=== PATIENT | male | born 1975 | race Hispanic/Latino ===

== ENCOUNTER 2017-05-01 02:02 | Emergency (ER) | payer OTHER ==
[2017-05-01 02:24] VITALS: BP 127/72; RESP 17; TEMP 98.2; O2SAT 99
[2017-05-01 03:03] LABS: BASO % 0.3 % (0.0-2.0); EOS # 0.1 K/uL (0.0-0.7); EOS % 1.6 % (0.0-4.0); HEMOGLOBIN 14.2 g/dL (12.0-18.0); LYMPH # 1.5 K/uL (1.0-4.3); LYMPH % 21.8 % (20.0-40.0); MEAN CELL VOLUME 82.6 fl (80.0-94.0); MEAN CORPUSCULAR HEMOGLOBIN 28.6 pg (27.0-31.0); MEAN CORPUSCULAR HGB CONC 34.6 g/dL (33.0-37.0); MEAN PLATELET VOLUME 8.3 fl (7.2-11.7); MONO # 0.5 K/uL (0.0-0.8); MONO % 7.2 % (0.0-10.0); NEUT # 4.6 K/uL (1.8-7.0); NEUT % 69.1 % (50.0-75.0); NRBC % 0.1 % (0.0-0.0); RBC 4.97 Mil/uL (4.40-5.90); RED CELL DISTRIBUTION WIDTH 13.6 % (11.5-14.5); WHITE BLOOD COUNT 6.7 K/uL (4.8-10.8)
[2017-05-01 03:12] LABS: ALB/GLOB RATIO 1.7 (1.0-2.1); ALBUMIN 4.9 g/dL (3.5-5.0); ALT/SGPT 64 U/L (21-72); AST/SGOT 35 U/L (17-59); BLOOD UREA NITROGEN 17 mg/dl (9-20); CALCIUM 10.1 mg/dL (8.4-10.2); GFR AFRICAN-AMERICAN > 60; GFR NON-AFRICAN AMERICAN > 60
--- NOTE | 2017-05-01 03:48 | ED PDOC ---
HPI: General Adult Time Seen by Provider: 05/01/17 02:22 Chief Complaint (Nursing): Palpitations Chief Complaint (Provider): palpitations History Per: Patient History/Exam Limitations: no limitations Additional Complaint(s): 42yo M in ED for eval of palpitations noted today -two episodes #1 20mins in length sudden fast heart rate at 120bpm after it subsided noted left arm discomfort. Pt however has a previous arm injury and may be attributed it to that. Pt admits to increased anxiety at work and home. Pt states he dind't feel well at home. now pt states he feels well. no complaints of arm pain or palpitations. denies: nausea, vomiting dizziness vision changes back pain epigastric pain diaphones chest pain, jaw pain, neck pain. has no significant past medical hx and family hx of HTN. denies smoking or alcohol abuse, denies drug use. Past Medical History Reviewed: Historical Data, Nursing Documentation, Vital Signs Vital Signs: Last Vital Signs Temp 98.2 F 05/01/17 02:11 Pulse 72 05/01/17 02:11 Resp 17 05/01/17 02:11 BP 127/72 05/01/17 02:11 Pulse Ox 99 05/01/17 02:11 - Medical History PMH: No Chronic Diseases - Family History Family History: States: No Known Family Hx - Allergies Allergies/Adverse Reactions: Allergies Allergy/AdvReac Type Severity Reaction Status Date / Time No Known Allergies Allergy Verified 05/01/17 02:25 Review of Systems ROS Statement: Except As Marked, All Systems Reviewed And Found Negative Constitutional: Negative for: Fever, Chills, Weakness, Malaise Cardiovascular: Positive for: Palpitations. Negative for: Chest Pain, Orthopnea , Paroxysmal Noc. Dyspnea, Edema, Light Headedness Respiratory: Negative for: Cough, Shortness of Breath Physical Exam - Reviewed Nursing Documentation Reviewed: Yes Vital Signs Reviewed: Yes - Physical Exam Appears: Positive for: Well, Non-toxic, No Acute Distress Head Exam: Positive for: ATRAUMATIC, NORMAL INSPECTION, NORMOCEPHALIC Skin: Positive for: Normal Color, Warm, DRY Eye Exam: Positive for: EOMI, Normal appearance, PERRL ENT: Positive for: Normal ENT Inspection Neck: Positive for: Normal, Painless ROM Cardiovascular/Chest: Positive for: Regular Rate, Rhythm Respiratory: Positive for: CNT, Normal Breath Sounds Gastrointestinal/Abdominal: Positive for: Normal Exam, Bowel Sounds, Soft Back: Positive for: Normal Inspection Extremity: Positive for: Normal ROM Neurologic/Psych: Positive for: Alert, Oriented - Laboratory Results Result Diagrams: 05/01/17 03:00 05/01/17 03:00 - ECG ECG Rhythm: Positive for: Normal QRS, Normal ST Segment, Sinus Rhythm O2 Sat by Pulse Oximetry: 99 - Progress ED Course And Treament: palpitations 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 pt with stable VS and normal labs. Pt strongly advised to f.u with cardiology for stress test and holter monitor and to f.u with pmd for thryoid panel pt well appearing and d.c without chest pain or palpitations. Disposition - Clinical Impression Clinical Impression: Palpitations - Patient ED Disposition Is Patient to be Admitted: No Counseled Patient/Family Regarding: Studies Performed, Diagnosis, Need For Followup - Disposition Referrals: [facility] [employer] [facility] [Outside] Disposition: Routine/Home Disposition Time: 03:51 Condition: STABLE Instructions: Palpitations (ED) Forms: [employer] ([place])
[2017-05-01 04:19] VITALS: PULSE 64
--- NOTE | 2017-05-01 11:28 | CARD ---
APPROVED REPORT EKG Measurement Heart [id number] <Conclusion> Normal sinus rhythm Normal ECG
== END 2017-05-01 04:05 | disposition home or self-care (01) ==
LOC: H.ER 02:02
DX: R00.2 Palpitations (principal)

== ENCOUNTER 2019-03-30 07:33 | Emergency (ER) | payer OTHER ==
[2019-03-30 07:40] VITALS: BMI 28.7
--- NOTE | 2019-03-30 08:08 | ED PDOC ---
HPI: General Adult Time Seen by Provider: 03/30/19 07:51 Chief Complaint (Nursing): ENT Problem Chief Complaint (Provider): ENT Problem History Per: Patient History/Exam Limitations: no limitations Onset/Duration Of Symptoms: Days (x1) Current Symptoms Are (Timing): Still Present Additional Complaint(s): Patient is a 44 y/o male with no significant PMHx who presents to the ED for evaluation of throat swelling onset yesterday. [place] and was taking Alavert daily because of all the pollen. Patient reports last night he felt like he had a fever so took some Advil for relief. Patient claims he woke up this morning with throat pain as well as difficulty swallowing and speaking. Patient indicated that during the night he felt like he was choking on his own saliva. Furthermore, patient complains of cough, chills, and congestion. Patient denies fever, wheezing, vomiting, and diarrhea at this time. PCP: Dr. Brink ([place]) Past Medical History Reviewed: Historical Data, Nursing Documentation, Vital Signs Vital Signs: Last Vital Signs Temp 99.4 F 03/30/19 07:40 Pulse 88 03/30/19 07:40 Resp 17 03/30/19 07:40 BP 112/76 03/30/19 07:40 Pulse Ox 96 03/30/19 07:40 Primary Care Provider: Freida Oconnor - Medical History PMH: No Chronic Diseases - Surgical History Surgical History: Appendectomy Other surgeries: radial arm repair - Family History Family History: States: No Known Family Hx - Home Medications Home Medications: Ambulatory Orders Medication Instructions Recorded Prednisone 50 mg PO DAILY #3 tablet 03/30/19 - Allergies Allergies/Adverse Reactions: Allergies Allergy/AdvReac Type Severity Reaction Status Date / Time No Known Allergies Allergy Verified 03/30/19 07:45 Review of Systems ROS Statement: Except As Marked, All Systems Reviewed And Found Negative Constitutional: Positive for: Chills. Negative for: Fever ENT: Positive for: Nose Congestion, Throat Pain, Throat Swelling Respiratory: Positive for: Cough. Negative for: Wheezing Gastrointestinal: Negative for: Vomiting, Diarrhea Physical Exam - Reviewed Nursing Documentation Reviewed: Yes Vital Signs Reviewed: Yes - Physical Exam Appears: Positive for: No Acute Distress Head Exam: Positive for: ATRAUMATIC, NORMAL INSPECTION, NORMOCEPHALIC Skin: Positive for: Normal Color, Warm, DRY Eye Exam: Positive for: EOMI, Normal appearance, PERRL ENT: Positive for: Normal ENT Inspection, Pharyngeal Erythema. Negative for: Tonsillar Exudate, Tonsillar Swelling Neck: Positive for: Normal, Painless ROM, Supple Cardiovascular/Chest: Positive for: Regular Rate, Rhythm. Negative for: Murmur Respiratory: Positive for: Normal Breath Sounds (clear to auscultation bilaterally). Negative for: Wheezing, Respiratory Distress Pulses-Radial (L): 2+ Pulses-Radial (R): 2+ Gastrointestinal/Abdominal: Positive for: Normal Exam, Soft. Negative for: Tenderness Back: Positive for: Normal Inspection. Negative for: L CVA Tenderness, R CVA Tenderness Extremity: Positive for: Normal ROM. Negative for: Pedal Edema, Deformity Lymphatic: Positive for: Normal Exam. Negative for: Adenopathy Neurological/Psych: Positive for: Awake, Alert, Oriented (x3) - ECG ECG Rhythm: Positive for: Sinus Rhythm Rate: 88 O2 Sat by Pulse Oximetry: 96 (RA) Pulse Ox Interpretation: Normal - Progress Re-evaluation Time: 10:21 Condition: Re-examined, Improved Medical Decision Making Medical Decision Making: Time: 807 Impression: ThroaT Swelling DDx includes but not limited to allergies, pharyngitis, angioedema, URI, and st rep pharyngitis. Plan: Benadryl 25 mg PO Motrin 600 mg PO Pepcid 20 mg PO predniSONE 60 mg PO Rapid Strep Group A Antigen Scribe Attestation: Documented by Yamil Connolly, acting as a scribe Shelly Dobbs MD. Provider Scribe Attestation: All medical record entries made by the Scribe were at my direction and personally dictated by me. I have reviewed the chart and agree that the record accurately reflects my personal performance of the history, physical exam, medical decision making, and the department course for this patient. I have also personally directed, reviewed, and agree with the discharge instructions and disposition. Disposition - Clinical Impression Clinical Impression: Sore throat, Pharyngitis - Patient ED Disposition Is Patient to be Admitted: No Doctor Will See Patient In The: Office Counseled Patient/Family Regarding: Studies Performed, Diagnosis, Need For Followup - Disposition Referrals: Joey Torre MD [Medical Doctor] - Disposition: Routine/Home Disposition Time: 10:23 Condition: GOOD Additional Instructions: HEATH URIBE, thank you for letting us take care of you today. Your provider was Ponce Dobbs MD and you were treated for DIFFICULTY BREATHING. The emergency medical care you received today was directed at your acute symptoms. If you were prescribed any medication, please fill it and take as directed. It may take several days for your symptoms to resolve. Return to the Emergency Department if your symptoms worsen, do not improve, or if you have any other problems. Please contact your doctor or call one of the physicians/clinics you have been referred to that are listed on the Patient Visit Information form that is included in your discharge packet. Bring any paperwork you were given at discharge with you along with any medications you are taking to your follow up visit. Our treatment cannot replace ongoing medical care by a primary care provider outside of the emergency department. Thank you for allowing the [facility] team to be part of your care today. Prescriptions: Prednisone 50 mg PO DAILY #3 tablet Instructions: Sore Throat in Adults, Seasonal Allergies in Adults
[2019-03-30 10:40] VITALS: BP 118/71; PULSE 80; RESP 18; TEMP 99.1; O2SAT 99
== END 2019-03-30 10:45 | disposition home or self-care (01) ==
LOC: H.ER 07:33
DX: J02.9 Acute pharyngitis, unspecified (principal)